=== PATIENT | male | born 1945 | race Two or more races ===

== ENCOUNTER 2023-12-13 15:01 | Emergency (ER) | payer OTHER, SELFPAY ==
[2023-12-13 15:12] VITALS: BP 149/88
--- NOTE | 2023-12-13 17:11 | ED.GENMED ---
History of Present Illness
General
Chief Complaint: Skin Problem
Time Seen by Provider: 12/13/23 17:11
Travel History
Have you had any contact with someone who has COVID-19?: No
Do you have any symptoms of coronavirus? Fever > 100 degrees, chills, cough, shortness of breath, sore throat, loss of taste or smell, muscle aches, or headache?: No
History of Present Illness
History of Present Illness:
HPI: Patient presents due to facial/eye discomfort after air freshener may have got into the eyes. He also used aftershave and cologne around this time. This apparently happened about a week ago but symptoms are persisting. Language line for
Gujarati was used. The patient denies any other symptoms including trouble breathing.
EXAM:
GENERAL: Well appearing in no distress
HEENT: There is infraorbital edema and erythema with minimal conjunctival injection
PULMONARY: No respiratory distress, breath sounds are clear and equal
NEUROLOGIC: Excellent strength all extremities, no coordination deficits
PSYCHIATRIC: Appropriate mental status, normal insight and judgement
EXTREMITIES: Nontender, no edema, moves all extremities equally
SKIN: As above, some excoriated skin noted to the fingers
ED COURSE:
5:50 PM: I initially evaluated patient
NUMBER AND COMPLEXITY OF PROBLEMS ADDRESSED AT THE ENCOUNTER
� Chronic conditions affecting care: CAD, hypertension, hyperlipidemia
� Acute Exacerbation and/or Progression of Chronic Illness: This is an acute problem
� Differential Diagnosis includes: Allergic reaction, dermatitis, periorbital cellulitis unlikely
AMOUNT AND/OR COMPLEXITY OF DATA TO BE REVIEWED AND ANALYZED
� I performed an independent evaluation of and my interpretation is:
EKG:
CT:
X-rays:
Laboratory Studies:
Other:
� Review of other/old records: The patient had a TURP in 2022
� Clinical information was obtained by an independent historian:
� Prescriptions/Medications Considered but not given:
� Further testing considered but not performed:
RISK OF COMPLICATIONS AND/OR MORBIDITY OR MORTALITY OF PATIENT MANAGEMENT
� Social determinants of health affecting care: Lives at home, speaks Al
� Discussion with other providers:
� Escalation of care including admission/observation vs risk of discharge considered: Will place patient on steroids. He states he has not tried anything for this. Will also give short course of steroids as well.
Past History
Past History
ED Past Medical History: GERD, HTN, Hypercholesterolemia and Other (BPH, arthritis)
ED Past Surgical History: Other (Hernia surgery)
Patient has exhibited threatening behavior?: No
Social History
Tobacco: Non-smoker
Phy Exam
Physical Exam
Physical Exam:
See HPI
Course
Orders/Labs/Results
Orders:
Orders
12/13/23 17:57
Prednisone [Deltasone] 50 mg PO NOW STA
Vital Signs
Initial and Last Documented VS:
Initial Vital Signs
Temp Pulse Resp BP Pulse Ox
97.6 F 92 18 149/88 99
12/13/23 15:12 12/13/23 15:12 12/13/23 15:12 12/13/23 15:12 12/13/23 15:12
Last Documented Vital Signs
Temp Pulse Resp BP Pulse Ox
97.6 F 92 18 149/88 99
12/13/23 15:12 12/13/23 15:12 12/13/23 15:12 12/13/23 15:12 12/13/23 15:12
*Critical Care Note
Total Time (30-74mins, 75-104mins- exclusive of procedures): Not Applicable
ED Attending Note
-
Portions of this chart may have been created with voice recognition software.� Occasional wrong word or��sound alike� substitutions may have occurred due to the inherent limitations of voice recognition software.
Discharge Plan
Departure
Patient Disposition: Home (Routine Discharge)
Date of Disposition: 12/13/23
Time of Disposition: 17:58
Patient with high blood pressure during this ER visit?: Yes
Discharge Problem:
Allergic reaction
Prescriptions:
New
prednisone 50 mg tablet
50 mg PO DAILY Qty: 4 0RF
No Action
lisinopril 20 MG tablet
20 mg PO DAILY
methotrexate sodium 2.5 MG tablet
7.5 mg PO KHAN
omeprazole 20 MG capsule,delayed release(DR/EC)
20 mg PO DAILY
folic acid 1 MG tablet
1 mg PO DAILY
acetaminophen [Tylenol] 325 mg Tablet
325 mg PO PRN PRN (Reason: pain)
finasteride 5 mg Tablet
5 mg PO DAILY
atorvastatin 20 mg Tablet
20 mg PO HS
Uro-MP 118-10-40.8-36 mg capsule
1 tab PO QID Qty: 30 2RF
levofloxacin 500 mg Tablet
500 mg PO DAILY Qty: 14 0RF
Referrals:
Leopoldo Benton DO [Family Provider] -
Activity Restrictions/Additional Instructions:
I sent prescription for additional steroids for an additional 4 days to your pharmacy in [place]. Return here if worse.
Interventions
Interventions:
*Risk Screen - Suicide Last Done: 12/13/23 15:12
*General Assessment Last Done: 12/13/23 15:12
*Neglect/Abuse Screening Last Done: 12/13/23 15:12
*ED COVID-19 Vaccine History Last Done: 12/13/23 15:12
[2023-12-13] MEDS: DELTASONE 50 MG PO (18:03)
== END 2023-12-13 18:11 | disposition home or self-care (01) ==
LOC: EMR 15:01
PROVIDERS: EMERGENCY PHYSICIAN Emergency Medicine; FAMILY PHYSICIAN Family Medicine
DX: T78.40XA Allergy, unspecified, initial encounter (principal); X58.XXXA Exposure to other specified factors, initial encounter; I25.10 Atherosclerotic heart disease of native coronary artery without angina pectoris; I10 Essential (primary) hypertension; E78.00 Pure hypercholesterolemia, unspecified; N40.0 Benign prostatic hyperplasia without lower urinary tract symptoms; K21.9 Gastro-esophageal reflux disease without esophagitis
CPT/HCPCS: 99282

== ENCOUNTER 2024-01-22 10:31 | Emergency (ER) | payer OTHER, SELFPAY ==
[2024-01-22 10:50] VITALS: BP 139/75
--- NOTE | 2024-01-22 12:36 | ED.GENMED ---
History of Present Illness
General
Chief Complaint: Skin Problem
Source: patient and records
Exam Limitations: none
Time Seen by Provider: 01/22/24 12:07
Nursing documentation reviewed up to this point in time: agreed with
Travel History
Have you had any contact with someone who has COVID-19?: No
Do you have any symptoms of coronavirus? Fever > 100 degrees, chills, cough, shortness of breath, sore throat, loss of taste or smell, muscle aches, or headache?: No
History of Present Illness
History of Present Illness:
Patient is a 78-year-old male who presents to the emergency department complaining of allergic reaction to iodine which he had used on his left heel about a week ago after lacerating in the kitchen. Patient put iodine on it and then developed
swelling and pruritic rash about his hands and face. Patient was seen in November for something similar that was thought to be due to his after shave and cologne at that time. Patient denies any difficulty breathing or swallowing. Patient is able
to communicate effectively in Icelandic. Patient denies any GI issues.
Past History
Past History
ED Past Medical History: GERD, HTN, Hypercholesterolemia and Other (BPH, arthritis)
ED Past Surgical History: Other (Hernia surgery)
Patient has exhibited threatening behavior?: No
Social History
Tobacco: Non-smoker
Review of Systems
Review of Systems
All Other Systems: Not applicable
Phy Exam
Physical Exam
Physical Exam:
Physical Exam
General: No apparent distress, alert and appropriate, well nourished, well hydrated
HENT: Normocephalic, supple with no lymphadenopathy but with infraorbital edema and erythema left greater than right but no conjunctival involvement
Eyes: Clear sclera, conjuctiva without injection
Heart: Regular rhythm and rate. No S3, S4. No murmur.
Lungs: No respiratory distress, no stridor, lung sounds clear and equal bilaterally
Abdomen: Soft, nontender
Neuro: Alert and oriented x 3, CN II - XII intact, no motor focality, no cerebellar dysfunction
Skin: Well-healing left heel laceration without any signs of cellulitis. Erythematous pruritic excoriated rash on the bilateral distal forearms as well as hands.
Psychiatric: well kept. interactive and cooperative
Extremities: No edema, cyanosis, tenderness,
Scores
Heart Failure Risk
Heart Failure Risk Score: Not Applicable
Heart Score for Chest Pain Patients
STEMI patient?: Not applicable
Withdrawal Assessment of Alcohol
Withdrawal Assessment Completed?: Not applicable
Course
Orders/Labs/Results
Orders:
Orders
01/22/24 12:34
Prednisone [Deltasone] 50 mg PO NOW STA
Vital Signs
Initial and Last Documented VS:
Initial Vital Signs
Temp Pulse Resp BP Pulse Ox
98.1 F 64 18 139/75 100
01/22/24 10:50 01/22/24 10:50 01/22/24 10:50 01/22/24 10:50 01/22/24 10:50
Last Documented Vital Signs
Temp Pulse Resp BP Pulse Ox
98.1 F 70 18 128/70 100
01/22/24 10:50 01/22/24 13:11 01/22/24 13:11 01/22/24 13:11 01/22/24 13:11
*Pulse Oximetry
Patient hypoxic: no
*EKG
Interpreted by ED Provider?: NA
*Relocation Services Specialist Interpretation
Rate: Relocation Services Specialist- N/A
*Critical Care Note
Total Time (30-74mins, 75-104mins- exclusive of procedures): Not Applicable
ED Attending Note
-
Portions of this chart may have been created with voice recognition software.� Occasional wrong word or��sound alike� substitutions may have occurred due to the inherent limitations of voice recognition software.
Discharge Plan
Departure
Patient Disposition: Home (Routine Discharge)
Date of Disposition: 01/22/24
Time of Disposition: 12:54
Patient with high blood pressure during this ER visit?: No
Covid-19: Not Applicable
Discharge Problem:
Allergic dermatitis
Instructions: Contact Dermatitis (DC), Skin Rash (DC)
Prescriptions:
New
prednisone 20 mg tablet
20 mg PO BID Qty: 10 0RF
fluticasone propionate 0.05 % cream
1 applic topical BID Qty: 15 0RF
Rx Instructions:
To affected areas
No Action
lisinopril 20 MG tablet
20 mg PO DAILY
methotrexate sodium 2.5 MG tablet
7.5 mg PO KHAN
omeprazole 20 MG capsule,delayed release(DR/EC)
20 mg PO DAILY
folic acid 1 MG tablet
1 mg PO DAILY
acetaminophen [Tylenol] 325 mg Tablet
325 mg PO PRN PRN (Reason: pain)
finasteride 5 mg Tablet
5 mg PO DAILY
atorvastatin 20 mg Tablet
20 mg PO HS
Uro-MP 118-10-40.8-36 mg capsule
1 tab PO QID Qty: 30 2RF
levofloxacin 500 mg Tablet
500 mg PO DAILY Qty: 14 0RF
prednisone 50 mg tablet
50 mg PO DAILY Qty: 4 0RF
Referrals:
Jackelin Babin MD [Consulting Staff] - Call in 1-3 days for appt
Interventions
Interventions:
*Nursing Disposition Last Done: 01/22/24 13:13
ED-Skin Assessment Last Done: 01/22/24 13:11
Discharge Date and Time
Discharge Date/Time: 01/22/24 13:14
Print Language: Yvan
[2024-01-22] MEDS: DELTASONE 50 MG PO (12:48)
[2024-01-22 13:11] VITALS: BP 128/70
== END 2024-01-22 13:14 | disposition home or self-care (01) ==
LOC: EMR 10:31
PROVIDERS: EMERGENCY PHYSICIAN Emergency Medicine; FAMILY PHYSICIAN Family Medicine
DX: L23.9 Allergic contact dermatitis, unspecified cause (principal); R22.0 Localized swelling, mass and lump, head; R22.33 Localized swelling, mass and lump, upper limb, bilateral; I10 Essential (primary) hypertension; E78.00 Pure hypercholesterolemia, unspecified; K21.9 Gastro-esophageal reflux disease without esophagitis; N40.0 Benign prostatic hyperplasia without lower urinary tract symptoms; M19.90 Unspecified osteoarthritis, unspecified site
CPT/HCPCS: 99283

== ENCOUNTER 2024-02-20 10:02 | Emergency (ER) | payer OTHER, SELFPAY ==
[2024-02-20 10:10] VITALS: BP 129/71
--- NOTE | 2024-02-20 12:46 | ED.SKININJ ---
HPI-Injury
General
Chief Complaint: Skin Problem
Source: patient
Exam Limitations: none
Time Seen by Provider: 02/20/24 12:24
Travel History
Have you had any contact with someone who has COVID-19?: No
Do you have any symptoms of coronavirus? Fever > 100 degrees, chills, cough, shortness of breath, sore throat, loss of taste or smell, muscle aches, or headache?: No
History of Present Illness-Injury
Initial Injury comments:
78-year-old male presents with recurrent and persistent rash to the hands. He has been here multiple times for the same. He states when he takes prednisone it gets better however comes back. He notes itchiness and pain. No fever. Please note
this history and physical was done with Yvan speaking qa intern. No facial or mucosal invovlement.
Past History
Past History
ED Past Medical History: GERD, HTN, Hypercholesterolemia and Other (BPH, arthritis)
ED Past Surgical History: Other (Hernia surgery)
Patient has exhibited threatening behavior?: No
Social History
Tobacco: Non-smoker
Phy Exam
Physical Exam
Physical Exam:
General: Well-appearing male no acute respiratory distress
Skin: Dyshidrotic appearance to the fingers bilaterally with subtle underlying erythema and a well-demarcated pattern no underlying fluctuance or induration. No drainage.
Neurologic: Alert
Course
Orders/Labs/Results
Orders:
Orders
02/20/24 12:45
Prednisone [Deltasone] 50 mg PO NOW STA
Vital Signs
Initial and Last Documented VS:
Initial Vital Signs
Temp Pulse Resp BP Pulse Ox
98.1 F 67 20 129/71 100
02/20/24 10:10 02/20/24 10:10 02/20/24 10:10 02/20/24 10:10 02/20/24 10:10
Last Documented Vital Signs
Temp Pulse Resp BP Pulse Ox
98.1 F 67 20 129/71 100
02/20/24 10:10 02/20/24 10:10 02/20/24 10:10 02/20/24 10:10 02/20/24 10:10
MDM/Problems Addressed
Differential Diagnosis Includes:
Rash to both hands. Question atopic dermatitis versus fungal involvement. He gets improvement after prednisone for short period time but then returns. Will provide another course of prednisone but do Lotrisone topically to cover for potential
underlying fungal involvement. Recommend he follow-up with dermatology
*Critical Care Note
Total Time (30-74mins, 75-104mins- exclusive of procedures): Not Applicable
ED Attending Note
-
Portions of this chart may have been created with voice recognition software.� Occasional wrong word or��sound alike� substitutions may have occurred due to the inherent limitations of voice recognition software.
Discharge Plan
Departure
Patient Disposition: Home (Routine Discharge)
Date of Disposition: 02/20/24
Time of Disposition: 12:48
Patient with high blood pressure during this ER visit?: No
Discharge Problem:
Dermatitis
Prescriptions:
New
prednisone 20 mg tablet
40 mg PO DAILY 5 Days Qty: 10 0RF
clotrimazole-betamethasone 1-0.05 % cream
1 applic topical BID 14 Days Qty: 15 0RF
No Action
lisinopril 20 MG tablet
20 mg PO DAILY
methotrexate sodium 2.5 MG tablet
7.5 mg PO KHAN
omeprazole 20 MG capsule,delayed release(DR/EC)
20 mg PO DAILY
folic acid 1 MG tablet
1 mg PO DAILY
acetaminophen [Tylenol] 325 mg Tablet
325 mg PO PRN PRN (Reason: pain)
finasteride 5 mg Tablet
5 mg PO DAILY
atorvastatin 20 mg Tablet
20 mg PO HS
Uro-MP 118-10-40.8-36 mg capsule
1 tab PO QID Qty: 30 2RF
levofloxacin 500 mg Tablet
500 mg PO DAILY Qty: 14 0RF
prednisone 50 mg tablet
50 mg PO DAILY Qty: 4 0RF
prednisone 20 mg tablet
20 mg PO BID Qty: 10 0RF
fluticasone propionate 0.05 % cream
1 applic topical BID Qty: 15 0RF
Rx Instructions:
To affected areas
Referrals:
Leopoldo Benton DO [Family Provider] -
Activity Restrictions/Additional Instructions:
Please follow-up with your water plant maintenance mechanic. Use steroid as directed by mouth. Use cream as prescribed twice a day to hands.
Interventions
Interventions:
*Risk Screen - Suicide Last Done: 02/20/24 10:10
*General Assessment Last Done: 02/20/24 10:10
*Neglect/Abuse Screening Last Done: 02/20/24 10:10
Discharge Date and Time
Print Language: Yvan
[2024-02-20 12:50] VITALS: BP 131/68
[2024-02-20] MEDS: DELTASONE 50 MG PO (12:58)
== END 2024-02-20 13:23 | disposition home or self-care (01) ==
LOC: EMR 10:02
PROVIDERS: EMERGENCY PHYSICIAN Emergency Medicine; FAMILY PHYSICIAN Family Medicine
DX: L30.9 Dermatitis, unspecified (principal)
CPT/HCPCS: 99283

== ENCOUNTER → 2024-06-15 17:28 | Outpatient (REF) | payer MEDICARE, OTHER, SELFPAY | LOC: RAD 17:28 | PROVIDERS: ATTENDING PHYSICIAN Family Medicine | DX: E04.1 Nontoxic single thyroid nodule (principal) | CPT/HCPCS: 76536 ==

== ENCOUNTER 2025-07-06 19:38 | Emergency (ER) | payer OTHER, MEDICARE, SELFPAY ==
[2025-07-06 19:51] VITALS: BP 157/92
--- NOTE | 2025-07-06 20:58 | ED.GENMED ---
History of Present Illness
General
Chief Complaint: Skin Surface Trauma
Source: patient
Exam Limitations: none
Time Seen by Provider: 07/06/25 20:31
History of Present Illness
History of Present Illness:
79yo right hand dominant male presenting for evaluation of a left thumb laceration. Patient was cutting john with a knife <1 hour prior to arrival. He accidentally cut himself in the distal aspect of the L thumb. He was unable to control the
bleeding at home so came to the ED. He denies any paresthesias. Unknown last Tdap.
Past History
Past History
ED Past Medical History: GERD, HTN, Hypercholesterolemia and Other (BPH, arthritis)
ED Past Surgical History: Other (Hernia surgery)
Patient has exhibited threatening behavior?: No
Social History
Tobacco: Non-smoker
Phy Exam
General Physical Exam
General Presentation: well appearing and no apparent distress
General Skin: warm and dry
General Habitus: normal
General Mental: alert
ENT Exam
ENT Exam: normocephalic
Pulmonary Exam
Pulmonary Exam: no respiratory distress
Neurological Exam
Neurological Exam: alert
Skin Exam
Skin Exam: normal color, warm/dry and other (2cm laceration noted to the distal fingertip of the L thumb with active bleeding. No nail injury noted. No bony tenderness and ROM intact.)
Psychiatric Exam
Psychiatric Exam: normal mood/affect
Course
Orders/Labs/Results
Orders:
Orders
07/06/25 20:58
Tetanus/Diphth/Acelpertussis [Adacel] 0.5 ml IM .ONCE ONE
Vital Signs
Initial and Last Documented VS:
Initial Vital Signs
Temp Pulse Resp BP Pulse Ox
99.2 F 77 18 157/92 99
07/06/25 19:51 07/06/25 19:51 07/06/25 19:51 07/06/25 19:51 07/06/25 19:51
Last Documented Vital Signs
Temp Pulse Resp BP Pulse Ox
99.2 F 77 18 157/92 99
07/06/25 19:51 07/06/25 19:51 07/06/25 19:51 07/06/25 19:51 07/06/25 20:58
Procedures
Laceration Closure
Left Thumb:
Status of Wound: clean
Size of Wound in cm: 2
Description of Wound Edges: sharp
Preparation: cleaned with saline
Anesthesia: 1% Lidocaine
Wound exploration: explored to base- no FB
Type of Closure: single layer closure
Skin Closure Material: 4-0 nylon
Number of sutures: 4
MDM/Problems Addressed
Differential Diagnosis Includes:
79yoM here with a L thumb laceration. 2cm laceration noted to distal fingertip on exam with active bleeding. No evidence of tendon or nail injury. Digit is neurovascularly intact. Laceration repaired as above and hemostasis achieved. Tdap updated.
Home wound care discussed. He was advised to have sutures removed in 10-14 days and return to the ED with any signs of infection.
*Pulse Oximetry
SaO2: 99
Oxygen Mode of Delivery: Room air
Patient hypoxic: no (99%)
*Critical Care Note
Total Time (30-74mins, 75-104mins- exclusive of procedures): Not Applicable
ED Attending Note
-
Portions of this chart may have been created with voice recognition software.� Occasional wrong word or��sound alike� substitutions may have occurred due to the inherent limitations of voice recognition software.
Discharge Plan
Departure
Patient Disposition: Home (Routine Discharge)
Date of Disposition: 07/06/25
Time of Disposition: 21:02
Patient with high blood pressure during this ER visit?: Yes
Discharge Problem:
Laceration of left thumb
Instructions: Laceration Repair With Stitches (DC)
Prescriptions:
No Action
lisinopril 20 MG tablet
20 mg PO DAILY
methotrexate sodium 2.5 MG tablet
7.5 mg PO KHAN
omeprazole 20 MG capsule,delayed release(DR/EC)
20 mg PO DAILY
folic acid 1 MG tablet
1 mg PO DAILY
acetaminophen [Tylenol] 325 mg Tablet
325 mg PO PRN PRN (Reason: pain)
finasteride 5 mg Tablet
5 mg PO DAILY
atorvastatin 20 mg Tablet
20 mg PO HS
Uro-MP 118-10-40.8-36 mg capsule
1 tab PO QID Qty: 30 2RF
levofloxacin 500 mg Tablet
500 mg PO DAILY Qty: 14 0RF
prednisone 50 mg tablet
50 mg PO DAILY Qty: 4 0RF
prednisone 20 mg tablet
20 mg PO BID Qty: 10 0RF
fluticasone propionate 0.05 % cream
1 applic topical BID Qty: 15 0RF
Rx Instructions:
To affected areas
prednisone 20 mg tablet
40 mg PO DAILY 5 Days Qty: 10 0RF
clotrimazole-betamethasone 1-0.05 % cream
1 applic topical BID 14 Days Qty: 15 0RF
Referrals:
Leopoldo Benton DO [Family Provider, Family Practice]
Activity Restrictions/Additional Instructions:
Keep wound clean and dry. Change bandage daily.
Sutures need to be removed in 10-14 days. Return to the ER with any signs of infection.
Interventions
Interventions:
*Risk Screen - Suicide Last Done: 07/06/25 19:51
*General Assessment Last Done: 07/06/25 21:43
*Neglect/Abuse Screening Last Done: 07/06/25 21:43
*ED- Fall Risk Assessment Last Done: 07/06/25 21:43
*Nursing Disposition Last Done: 07/06/25 21:44
ED-Skin Assessment Last Done: 07/06/25 21:43
Discharge Date and Time
Discharge Date/Time: 07/06/25 21:44
Print Language: Yvan
[2025-07-06] MEDS: ADACEL 0.5 ML IM (21:22)
== END 2025-07-06 21:44 | disposition home or self-care (01) ==
LOC: EMR 19:38
PROVIDERS: EMERGENCY PHYSICIAN Emergency Medicine; FAMILY PHYSICIAN Family Medicine
DX: S61.012A Laceration without foreign body of left thumb without damage to nail, initial encounter (principal); I10 Essential (primary) hypertension; E78.00 Pure hypercholesterolemia, unspecified; K21.9 Gastro-esophageal reflux disease without esophagitis; N40.0 Benign prostatic hyperplasia without lower urinary tract symptoms; M19.90 Unspecified osteoarthritis, unspecified site; Z23 Encounter for immunization; W26.0XXA Contact with knife, initial encounter; Y93.G1 Activity, food preparation and clean up
CPT/HCPCS: 99282; 12001; 90471; 90715